=== PATIENT | male | born 1940 | race African-American/Black ===

== ENCOUNTER 2018-11-06 23:23 | Emergency (ER) | payer OTHER ==
[~2018-11-06] VITALS: Ht 162.6 cm; Wt 51.7 kg
[~2018-11-06 23:23] MED LIST: ALLOPURINOL 30300 M1 PO; ALPRAZOLAM2 MG PO; CHLORZOXAZONE500 MG PO; CLONIDINE HCL0.2 M2 PO; CLONIDINE0.1 PO; HYDROCODONE-APA1 TA1 PO; HYTRIN 5 M5 MG/1 CAP PO; MAXITROL EYE DRO5 ML OPHTHALMIC; MELOXICAM15 MG PO; PERCOCET 10-321 EACH PO; VENTOLIN HFA 1818 GM INH; ZANTAC 150MG T150 M1 PO
[2018-11-06 23:57] LABS: ABSOLUTE NEUTROPHILS 3.6 thou/uL (1.4-8.2); BASOPHILS 0.6 % (0.0-2.0); CALCIUM 8.4 mg/dL (8.5-10.1); CREATININE 0.8 mg/dL (0.7-1.3); EOSINOPHILS 1.2 % (0.0-3.0); HEMOGLOBIN 14.9 gm/dL (14.0-18.0); LYMPHOCYTES 20.6 % (24.0-44.0); MCH 34.4 pg (26.0-34.0); MCHC 34.6 g/dL (28.0-37.0); MCV 99.6 fL (80.0-100.0); MONOCYTES 1.3 % (1.0-8.0); PLATELET COUNT 261 thou/uL (150-400); POLYS 76.3 % (36.0-66.0); POTASSIUM 4.2 mmol/L (3.5-5.1); RBC 4.32 mil/uL (4.50-6.00); RDW 14.3 % (10.5-14.5); WBC 4.8 thou/uL (4.0-11.0)
[2018-11-07 00:04] LABS: MAGNESIUM 1.5 mg/dL (1.8-2.4); TOTAL BILIRUBIN 0.8 mg/dL (<0.1-1.0); TOTAL PROTEIN 7.9 g/dL (6.4-8.2)
[2018-11-07 00:23] LABS: URINE BILIRUBIN NEGATIVE (Negative); URINE BLOOD TRACE (Negative); URINE CLARITY CLEAR; URINE COLOR YELLOW; URINE GLUCOSE-RANDOM* NEGATIVE (Negative); URINE KETONES NEGATIVE (Negative); URINE NITRITE-REFLEX POSITIVE (Negative); URINE PROTEIN (DIPSTICK) NEGATIVE (Negative); URINE SPECIFIC GRAVITY <= 1.005 (1.005-1.035)
[2018-11-07 00:24] LABS: URINE LEUKOCYTES-REFLEX 3+ (Negative); URINE UROBILINOGEN 0.2 E.U./dl (0.2-1.0)
[2018-11-07 00:26] LABS: CASTS None Seen /LPF (None Seen); CRYSTALS None Seen /LPF (None Seen); MUCUS 0-3 Light strn/LPF (None Seen); SQUAMOUS 0-3 Few /LPF (0-3); URINE RBC 3-10 Few /HPF (0-2); URINE WBC-REFLEX >25 Many /HPF (0-5)
[2018-11-07 00:27] LABS: TRANSITIONAL EPITHEL CELL 0-3 Few /LPF (None Seen); WBC CLUMPS Few (None Seen)
[2018-11-07] MEDS ORDERED: BACTRIM DS TAB1 EACH PO (00:31)
[2018-11-07] MEDS ORDERED: LOMOTIL TABLET1 EACH PO (00:32)
[2018-11-07 00:50] VITALS: BP 142/77
== END 2018-11-07 00:52 | disposition home or self-care (01) ==
LOC: ER 23:23
PROVIDERS: Emergency Medicine
DX: N39.0 Urinary tract infection, site not specified (principal); R63.0 Anorexia; I10 Essential (primary) hypertension